=== PATIENT | male | born 1985 | race Caucasian/White ===

== ENCOUNTER 2020-08-05 13:05 | Emergency (ER) | payer OTHER ==
[2020-08-05] MEDS ORDERED: Glucagon,Human Recombinant 1 MG Vial IVPUSH ONE (13:31)
[2020-08-05] MEDS ORDERED: Sodium Chloride 0.9% 10 ML Syringe FLUSH PRN (13:31)
--- NOTE | 2020-08-05 13:32 | EDM.PDOC ---
ED HPI GENERAL MEDICAL PROBLEM - General Chief Complaint: ENT Problem Stated Complaint: TEMPATURE 100.9/SOB/CAN'T SWALLOW Time Seen by Provider: 08/05/20 13:32 Source of Information: Reports: Patient, RN, RN Notes Reviewed History Limitations: Reports: No Limitations - History of Present Illness INITIAL COMMENTS - FREE TEXT/NARRATIVE: Patient presents to the ED from [facility] with complaints of inability to swallow. Per patient report, he has a history of esophageal dilation at [facility] in [place] earlier this year; he is unsure what physician performed this procedure. He states his symptoms began abruptly while eating lunch today. He feels he was eating too quickly and all of a sudden was unable to swallow. He reports he feels like the food is stuck in his throat, but is moving down his esophagus slowly. He denies food allergies, edema of the tongue/lips, difficulty breathing, chest pain, shortness of breath, palpitations, or dyspepsia. - Related Data Allergies Allergy/AdvReac Type Severity Reaction Status Date / Time No Known Allergies Allergy Verified 08/05/20 13:14 Home Meds: Home Meds . [No Known Home Meds] 08/05/20 [History] Past Medical History HEENT History: Reports: None Cardiovascular History: Reports: None Respiratory History: Reports: None Gastrointestinal History: Reports: Other (See Below) Other Gastrointestinal History: Esophageal stricture Genitourinary History: Reports: None Musculoskeletal History: Reports: None Neurological History: Reports: None Psychiatric History: Reports: None Endocrine/Metabolic History: Reports: None Hematologic History: Reports: None Dermatologic History: Reports: None - Past Surgical History GI Surgical History: Reports: Other (See Below) Other GI Surgeries/Procedures: esophageal stretching Social & Family History - Tobacco Use Tobacco Use Status *Q: Never Tobacco User ED ROS ENT - Review of Systems Review Of Systems: Comprehensive ROS is negative, except as noted in HPI. ED EXAM, ENT - Physical Exam Exam: See Below Exam Limited By: No Limitations General Appearance: Alert, WD/WN, No Apparent Distress Mouth/Throat: Normal Inspection, Normal Gums, Normal Lips, Normal Oropharynx, Normal Teeth, Muffled Voice. No: Drooling, Dry Mucous Membrane, Hoarse Voice, Lip Swelling, Oral Ulcers, Perioral Cyanosis, Pharyngeal Erythema, Throat Swelling, Tongue Swelling, Tonsillar Erythema, Tonsillar Swelling, Uvular Deviation, Uvular Edema Head: Atraumatic, Normocephalic Neck: Normal Inspection, Supple, Non-Tender, Full Range of Motion. No: Lymphadenopathy (L), Lymphadenopathy (R), Tender Lateral, Tender Midline, Thyromegaly Respiratory/Chest: No Respiratory Distress, Lungs Clear, Normal Breath Sounds, No Accessory Muscle Use, Chest Non-Tender Cardiovascular: Normal Peripheral Pulses, Regular Rate, Rhythm, No Edema, No Gallop, No JVD, No Murmur, No Rub Neurological: Alert, Oriented, CN II-XII Intact, Normal Cognition, No Motor/Sen jian Deficits Skin: Warm, Dry, Intact, Normal Color, No Rash. No: Ecchymosis, Erythema, Mottled, Pallor, Petechiae, Rash Course - Vital Signs Last Recorded V/S: Last Vital Signs Temp 99.3 F 08/05/20 13:07 Pulse 80 08/05/20 13:07 Resp 16 08/05/20 13:07 BP 157/102 H 08/05/20 13:07 Pulse Ox 97 08/05/20 13:07 - Orders/Labs/Meds Orders: Active Orders 24 hr Category Date Time Status Peripheral IV Insertion Adult [OM.PC] Stat Oth 08/05/20 13:31 Ordered Meds: Medications Discontinued Medications Generic Name Dose Route Start Last Admin Trade Name Diegoq PRN Reason Stop Dose Admin Glucagon 1 mg 08/05/20 13:31 08/05/20 13:50 Glucagen IVPUSH 08/05/20 13:32 1 mg ONETIME ONE Administration Sodium Chloride 10 ml 08/05/20 13:31 08/05/20 13:49 Saline Flush FLUSH 10 ml ASDIRECTED PRN Administration Keep Vein Open - Re-Assessments/Exams Free Text/Narrative Re-Assessment/Exam: 08/05/20 Patient reports improvement of swallowing with Glucgon 1mg IVP x1. He is able to comfortably swallow water. His voice has improved, and does not sound muffled. Wiill discharge patient home with instructions to follow up with retail salesman. Departure - Departure Time of Disposition: 14:18 Disposition: Home, Self-Care 01 Condition: Good Clinical Impression: Foreign body in esophagus Qualifiers: Encounter type: initial encounter Qualified Code(s): T18.108A - Unspecified foreign body in esophagus causing other injury, initial encounter - Discharge Information *PRESCRIPTION DRUG MONITORING PROGRAM REVIEWED*: Not Applicable *COPY OF PRESCRIPTION DRUG MONITORING REPORT IN PATIENT ANAND: Not Applicable Referrals: PCP,None [Primary Care Provider] - Forms: ED Department Discharge Additional Instructions: Establish with a primary care provider to help you manage your overall health. Follow up with Gastroenterology regarding today's visit - you may require an additional dilation. Call [facility] in [place] and ask who your provider was, you may be able to see them again without a referral. Sepsis Event Note (ED) - Evaluation Sepsis Screening Result: No Definite Risk - Focused Exam Vital Signs: Vital Signs Temp Pulse Resp BP Pulse Ox 08/05/20 13:07 99.3 F 80 16 157/102 H 97 - My Orders Last 24 Hours: My Active Orders 08/05/20 13:31 Peripheral IV Insertion Adult [OM.PC] Stat - Assessment/Plan Last 24 Hours: My Active Orders 08/05/20 13:31 Peripheral IV Insertion Adult [OM.PC] Stat
== END 2020-08-05 14:42 | disposition home or self-care (01) ==
LOC: DL.ED 13:05
DX: T18.128A Food in esophagus causing other injury, initial encounter (principal)
CPT/HCPCS: 96374; 99283-25; J1610

== ENCOUNTER 2022-10-28 18:42 | Emergency (ER) | payer OTHER | END 2022-10-28 19:48 | disposition left against medical advice (07) | LOC: DL.ED 18:42 | DX: Z53.21 Procedure and treatment not carried out due to patient leaving prior to being seen by health care provider (principal) ==